=== PATIENT | female | born 1985 | race Caucasian/White ===

== ENCOUNTER 2022-10-12 22:35 | Emergency (ER) | payer OTHER ==
[2022-10-12 22:41] VITALS: RESP 18; BMI 33.6
[2022-10-12 23:06] LABS: HCG,QUALITATIVE URINE Negative
[2022-10-12 23:08] LABS: EPI CELLS 24 /uL (0-25.1); HYALINE CASTS 18 /uL (0-3.1); PH,URINE 5.5 (5.0-8.0); URINE APPEARANCE TURBID; URINE BILIRUBIN 1+ (NEGATIVE); URINE COLOR RED; URINE GLUCOSE (UA) NEGATIVE (NEGATIVE); URINE KETONE NEGATIVE (NEGATIVE); URINE LEUK ESTERASE 2+ (NEGATIVE); URINE NITRITE POSITIVE (NEGATIVE); URINE PROTEIN 3+ (NEGATIVE); URINE UROBILINOGEN 0.2 mg/dL (0.2-1.0); URINE WBC 2356 /uL (0-25.8)
[2022-10-13] MEDS ORDERED: SULFAMETHOXAZOLE/TRIMETHOPRIM 800MG/160MG D.S. TABLET PO ONE (01:09)
[2022-10-13] MEDS ORDERED: SULFAMETHOXAZOLE/TRIMETHOPRIM 800MG/160MG D.S. TABLET ONE (01:18)
[2022-10-13 01:25] VITALS: BP 113/71; PULSE 87; TEMP 97.4
== END 2022-10-13 01:30 | disposition home or self-care (01) ==
LOC: JER 22:35
DX: R10.30 Lower abdominal pain, unspecified (principal); R30.0 Dysuria; N30.01 Acute cystitis with hematuria
CPT/HCPCS: 81003; 84703; 87086; 87186; 99283-25

== ENCOUNTER 2023-03-04 17:55 | Emergency (ER) | payer OTHER ==
[2023-03-04] MEDS ORDERED: SODIUM CHLORIDE 0.9% 500 ML INFUS.BAG IV ONE (18:26)
[2023-03-04 18:46] VITALS: BMI 32.9
[2023-03-04] MEDS ORDERED: ACETAMINOPHEN 1000 MG/100 ML BAG IVPB ONE (19:06)
[2023-03-04 19:29] LABS: BASO % 0.2 % (0-2.0); EOS % 0.4 % (0-4.5); HEMATOCRIT 40.5 % (32.4-45.2); HEMOGLOBIN 13.6 GM/dL (10.7-15.3); LYMPH % 7.8 % (8-40); MCH 29.9 pg (25.7-33.7); MCHC 33.4 g/dl (32.0-36.0); MEAN CELL VOLUME 89.4 fl (80-96); MEAN PLT VOLUME 6.9 fl (7.5-11.1); NEUT % 87.6 % (42.8-82.8); PLATELET COUNT 453 10^3/uL (134-434); RBC 4.53 M/mm3 (3.60-5.2); RDW 13.7 % (11.6-15.6); WHITE BLOOD COUNT 17.7 K/mm3 (4.0-10.0)
[2023-03-04] MEDS ORDERED: ACETAMINOPHEN INJECTION 100 ML IVPB ONE (19:38)
[2023-03-04 19:46] LABS: POTASSIUM 4.2 mmol/L (3.5-5.1)
[2023-03-04 19:48] LABS: CALCIUM 9.1 mg/dL (8.5-10.1)
[2023-03-04 19:49] LABS: ALBUMIN 3.4 g/dl (3.4-5.0); BLOOD UREA NITROGEN 13.3 mg/dL (7-18)
[2023-03-04] MEDS ORDERED: levETIRAcetam 500 MG/5 ML INJECTION VIAL IVPB ONE ×2 (19:51→20:39)
[2023-03-04 19:53] LABS: BILIRUBIN,TOTAL 0.2 mg/dL (0.2-1)
[2023-03-04 19:54] LABS: TOT PROT 7.4 g/dl (6.4-8.2)
[2023-03-04 22:57] VITALS: PULSE 90; RESP 17; TEMP 98.5
[2023-03-04 23:00] VITALS: BP 128/86
== END 2023-03-04 23:47 | disposition home or self-care (01) ==
LOC: JER 17:55
PROC: 3E033NZ Introduction of Analgesics, Hypnotics, Sedatives into Peripheral Vein, Percutaneous Approach (ICD-10-PCS; principal; 2023-03-04)
PROC: 3E033GC Introduction of Other Therapeutic Substance into Peripheral Vein, Percutaneous Approach (ICD-10-PCS; 2023-03-04)
DX: R56.9 Unspecified convulsions (principal); R11.0 Nausea
CPT/HCPCS: 36415; 70450-TC; 80053; 84703; 85025; 93005; 93010; 99285-25